=== PATIENT | male | born 1985 | race Caucasian/White ===

== ENCOUNTER 2017-12-27 14:13 | Emergency (ER) | payer BC ==
[~2017-12-27] VITALS: Ht 182.9 cm; Wt 74.8 kg
[2017-12-27] MEDS ORDERED: IBUPROFEN 800800 M1 PO (15:24)
[2017-12-27] MEDS ORDERED: TRAMADOL 50 MG50 MG PO (15:24)
[2017-12-27] MEDS ORDERED: PHENERGAN 25 MG25 M1 PO (15:25)
[2017-12-27 15:46] VITALS: BP 150/87
== END 2017-12-27 15:46 | disposition home or self-care (01) ==
LOC: M.ERS 14:13
DX: M54.6 Pain in thoracic spine (principal)

== ENCOUNTER 2019-09-20 19:02 | Emergency (ER) | payer OTHER ==
[~2019-09-20] VITALS: Ht 182.9 cm; Wt 81.7 kg
[~2019-09-20 19:02] MED LIST: IBUPROFEN 800800 M1 PO; PHENERGAN 25 MG25 M1 PO; TRAMADOL 50 MG50 MG PO
[2019-09-20 20:57] VITALS: BP 124/88
== END 2019-09-20 20:58 | disposition home or self-care (01) ==
LOC: M.ERS 19:02
DX: M25.531 Pain in right wrist (principal)

== ENCOUNTER 2021-06-29 11:52 | Emergency (ER) | payer OTHER ==
[~2021-06-29] VITALS: Ht 182.9 cm; Wt 83.9 kg
[2021-06-29 13:47] LABS: URINE BILIRUBIN NEGATIVE (Negative); URINE BLOOD NEGATIVE (Negative); URINE CLARITY CLEAR; URINE COLOR YELLOW; URINE GLUCOSE-RANDOM NEGATIVE (Negative); URINE KETONES NEGATIVE (Negative); URINE LEUKOCYTES-REFLEX NEGATIVE (Negative); URINE NITRITE-REFLEX NEGATIVE (Negative); URINE PROTEIN NEGATIVE (Negative); URINE UROBILINOGEN 0.2 E.U./dl (0.2-1.0)
[2021-06-29 13:52] LABS: ABSOLUTE BASOPHILS 0.1 thou/uL (0.0-0.2); ABSOLUTE EOSINOPHILS 0.4 thou/uL (0.0-0.7); ABSOLUTE LYMPHOCYTES 1.8 thou/uL (0.8-5.3); ABSOLUTE MONOCYTES 0.6 thou/uL (0.0-1.2); ABSOLUTE NEUTROPHILS 5.6 thou/uL (1.6-8.1); BASOPHILS 0.8 %; EOSINOPHILS 4.4 %; HEMOGLOBIN 15.2 gm/dL (14.0-18.0); LYMPHOCYTES 21.6 %; MCH 29.2 pg (26.0-34.0); MCHC 34.5 g/dL (28.0-37.0); MCV 84.4 fL (80.0-100.0); MONOCYTES 7.2 %; MPV 6.9 fl. (7.2-11.1); NUCLEATED RBCS 0 /100WBC; PLATELET COUNT* 259 thou/uL (150-400); RBC 5.21 mil/uL (4.50-6.00); RDW-CV 13.2 % (10.5-14.5); WBC 8.5 thou/uL (4.0-11.0)
[2021-06-29 14:01] LABS: CALCIUM 8.7 mg/dL (8.5-10.1); CREATININE 0.9 mg/dL (0.6-1.3); POTASSIUM 3.8 mmol/L (3.5-5.1)
[2021-06-29 14:05] LABS: ALBUMIN 4.3 g/dL (3.4-5.0); TOTAL BILIRUBIN 0.7 mg/dL (<0.1-1.0); TOTAL PROTEIN 8.1 g/dL (6.4-8.2)
[2021-06-29] MEDS ORDERED: PEPCID20 MG PO (15:43)
[2021-06-29] MEDS ORDERED: OMEPRAZOLE 20 M20 M1 PO (15:43)
[2021-06-29] MEDS ORDERED: ONDANSETRON ODT4 MG PO (15:43)
[2021-06-29] MEDS ORDERED: AUGMENTIN 875-1 EACH PO ×2 (15:43)
[2021-06-29] MEDS ORDERED: APAP W/CODEINE1 TA2 PO (15:44)
[2021-06-29 16:05] VITALS: BP 125/76
== END 2021-06-29 16:07 | disposition home or self-care (01) ==
LOC: M.ERS 11:52
PROVIDERS: Physician Assistant
DX: K57.32 Diverticulitis of large intestine without perforation or abscess without bleeding (principal); Z20.822 Contact with and (suspected) exposure to COVID-19; K29.70 Gastritis, unspecified, without bleeding; R42 Dizziness and giddiness